=== PATIENT | female | born 1970 | race Caucasian/White ===

== ENCOUNTER 2022-04-15 13:52 | Emergency (ER) | payer BC, MEDICAID ==
[2022-04-15] MEDS ORDERED: Ketorolac Tromethamine 30 MG/ML VIAL ONE ×2 (17:38)
== END 2022-04-15 18:13 | disposition home or self-care (01) ==
LOC: ERS 13:52
DX: M79.662 Pain in left lower leg (principal); Z79.899 Other long term (current) drug therapy
CPT/HCPCS: 96372; J1885

== ENCOUNTER 2022-05-25 09:24 | Emergency (ER) | payer BC, MEDICAID, SELFPAY ==
[2022-05-25] MEDS ORDERED: Ketorolac Tromethamine 30 MG/ML VIAL ONE (10:14)
== END 2022-05-25 10:38 | disposition home or self-care (01) ==
LOC: ERS 09:24
DX: K08.89 Other specified disorders of teeth and supporting structures (principal)
CPT/HCPCS: 96372; 99283; J1885

== ENCOUNTER 2022-06-11 06:37 | Emergency (ER) | payer SELFPAY ==
[2022-06-11] MEDS ORDERED: Aspirin Chewable 81 MG TAB ONE (07:15)
[2022-06-11 07:16] LABS: #Eosinphils 0.1 thou/uL (0.0-0.7); #Lymphocytes 1.3 thou/uL (1.20-3.40); #Monocytes 0.4 thou/uL (0.11-0.59); #Neutrophils 3.9 thou/uL (1.40-6.50); %Basophils 0.8 % (0.0-1.0); %Eosinophils 1.9 % (0.0-10.0); %Monocytes 6.7 % (0.0-10.0); %Neutrophils 68.6 % (42.0-75.0); Mean Corpuscular HGB CONC 32.3 g/dL (32.0-36.0); Mean Corpuscular Hemoglobin 27.5 pg (27.0-31.0); Mean Corpuscular Volume 85.4 fL (78.0-98.0); Platelet Count 317 thou/uL (130-400); Red Blood Cell (RBC) Count 4.37 mill/uL (4.20-5.40); White Blood Cell (WBC) Count 5.8 thou/uL (4.8-10.8)
[2022-06-11] MEDS ORDERED: Lidocaine Viscous Sol 2% 15 ml UD Cup ONE (07:16)
[2022-06-11] MEDS ORDERED: Famotidine/PF 20 mg/2ml Vial ONE (07:16)
[2022-06-11] MEDS ORDERED: Mag-Al 1200 mg/1200 mg/30 ML UDCUP ONE (07:16)
[2022-06-11 07:30] LABS: ALT (SGPT) 98 U/L (8-55); AST (SGOT) 329 U/L (5-34); Albumin 3.7 g/dL (3.5-5.0); Alkaline Phosphatase 165 U/L (40-110); Anion Gap 17 mmol/L (10-20); BUN (Urea Nitrogen) 12 mg/dL (7.0-18.7); Bilirubin, Total 0.5 mg/dL (0.2-1.2); Calc. Creatinine Clearance 0 mL/min (70-130); Carbon Dioxide 21 mmol/L (22-29); Chloride 104 mmol/L (98-107); Estimated GFR 89; Globulin 2.6 g/dL (2.4-3.5); Glucose 115 mg/dL (70-105); Lipase 24 U/L (8-78); Protein, Total 6.3 g/dL (6.0-8.3); Sodium 138 mmol/L (136-145)
[2022-06-11] MEDS ORDERED: Famotidine/PF 20 MG in Sodium Chloride 0.9% 50 ML IVPB SCH (07:45)
[2022-06-11 08:01] LABS: Pregnancy Test - Urine (BHCG) Negative (Negative)
[2022-06-11 08:02] LABS: Pregu Control Background? CLEAR/WHITE (CLR/WHITE); Pregu Control Bar Appear? YES (CONTROL BAR); Specific Gravity 1.015 (1.002-1.036)
[2022-06-11 08:12] LABS: Acetaminophen Less than 10.0 mcg/mL (10.0-30.0)
[2022-06-11 08:36] LABS: HBCM Index 0.22 S/CO (0-0.79); HBSAg Index 0.28 S/CO (0-0.99); Hep A IgM AB Non-Reactive (NonReactive); Hep A IgM S/CO 0.18 S/CO (0-0.79); Hep B Surf Ag Non-Reactive S/CO (NonReactive); Hep C IgG Ab Non-Reactive (NonReactive); Hep C Index 0.05 S/CO (0-0.79); Hepatitis B Core IgM Abs Non-Reactive (NonReactive)
== END 2022-06-11 12:30 | disposition home or self-care (01) ==
LOC: ERS 06:37
DX: R74.01 Elevation of levels of liver transaminase levels (principal); R10.13 Epigastric pain; I10 Essential (primary) hypertension; F32.A Depression, unspecified; Z79.899 Other long term (current) drug therapy
CPT/HCPCS: 36415; 71045; 76705; 80053; 80074; 80143; 81025; 83690; 84484; 85025; 93005; 94760; 96365; 80307; S0028

== ENCOUNTER 2022-07-25 11:40 | Emergency (ER) | payer SELFPAY ==
[2022-07-25 12:41] LABS: Bilirubin Negative (Negative); Blood, Urine Negative (Negative); Clarity Clear (Clear); Glucose, Urine (Dipstick) Normal (Negative); Ketone, Urine Negative (Negative); Leukocyte Negative Leu/uL (Negative); Nitrite Negative (Negative); Protein, Urine (Dipstick) Negative (Neg-Trace); Specific Gravity, Urine 1.002 (1.002-1.036); Urobilinogen Normal mg/dL (Less than 2); pH, Urine 5.5 (5.0-9.0)
[2022-07-25 12:53] LABS: Amphetamine Not Detected (NotDetected); Barbiturates Screen Not Detected (NotDetected); Benzodiazepine Screen Not Detected (NotDetected); Cocaine Metabolite Screen Not Detected (NotDetected); Methadone Not Detected (NotDetected); Methamphetamine Not Detected (NotDetected); Opiate Screen Not Detected (NotDetected); Oxycodone Screen Not Detected (NotDetected); Phencyclidine (PCP) Not Detected (NotDetected); THC/Cannabinoid Screen Not Detected (NotDetected); Tricyclic Screen Not Detected (NotDetected)
[2022-07-25 13:14] LABS: #Basophils 0.1 thou/uL (0.0-0.2); #Eosinphils 0.1 thou/uL (0.0-0.7); #Lymphocytes 1.4 thou/uL (1.20-3.40); #Monocytes 0.4 thou/uL (0.11-0.59); #Neutrophils 4.5 thou/uL (1.40-6.50); %Basophils 0.8 % (0.0-1.0); %Eosinophils 1.6 % (0.0-10.0); %Lymphocytes 22.2 % (21.0-51.0); %Monocytes 6.5 % (0.0-10.0); %Neutrophils 68.9 % (42.0-75.0); Hemoglobin 11.7 g/dL (12.0-16.0); Mean Corpuscular HGB CONC 32.5 g/dL (32.0-36.0); Mean Corpuscular Hemoglobin 27.8 pg (27.0-31.0); Mean Corpuscular Volume 85.5 fL (78.0-98.0); Mean Platelet Volume 7.4 fL (7.4-10.4); Platelet Count 254 thou/uL (130-400); RBC Distribution Width 13.7 % (11.5-14.5); White Blood Cell (WBC) Count 6.5 thou/uL (4.8-10.8)
[2022-07-25 13:40] LABS: Acetaminophen Less than 10.0 mcg/mL (10.0-30.0); Alcohol 112 mg/dL (Less than 10); CK (CPK) 36 U/L (29-168); Salicylate Less than 8.0 mg/dL (15.0-30.0)
[2022-07-25 13:41] LABS: ALT (SGPT) 24 U/L (8-55); AST (SGOT) 19 U/L (5-34); Albumin 3.3 g/dL (3.5-5.0); Alkaline Phosphatase 79 U/L (40-110); Anion Gap 17 mmol/L (10-20); BUN (Urea Nitrogen) 8 mg/dL (7.0-18.7); Bilirubin, Total 0.2 mg/dL (0.2-1.2); Calc. Creatinine Clearance 0 mL/min (70-130); Calcium 8.7 mg/dL (7.8-10.44); Carbon Dioxide 21 mmol/L (22-29); Chloride 111 mmol/L (98-107); Estimated GFR 105; Globulin 2.3 g/dL (2.4-3.5); Potassium 3.8 mmol/L (3.5-5.1); Protein, Total 5.6 g/dL (6.0-8.3); Sodium 145 mmol/L (136-145)
[2022-07-25 13:59] LABS: Glucose 57 mg/dL (70-105)
[2022-07-25] MEDS ORDERED: Dextrose 50% Abboject 50 ML SYRINGE ONE (14:22)
[2022-07-25 16:28] LABS: Acetaminophen Less than 10.0 mcg/mL (10.0-30.0); Alcohol 31 mg/dL (Less than 10); Salicylate Less than 8.0 mg/dL (15.0-30.0)
== END 2022-07-25 18:37 | disposition home or self-care (01) ==
LOC: ERS 11:40
DX: T42.6X1A Poisoning by other antiepileptic and sedative-hypnotic drugs, accidental (unintentional), initial encounter (principal)
CPT/HCPCS: 36415; 36416; 80053; 80306; 80307; 81003; 82550; 83690; 84443; 84484; 85025; 93005; 94760; 96361; 96374; J7999